=== PATIENT | male | born 1955 | race Caucasian/White ===

== ENCOUNTER → 2017-07-18 | Outpatient (CLI) | payer OTHER ==
--- NOTE | 2017-07-18 13:00 | KCIC ---
KNEE LEFT 3V Indication: .Left knee pain after an injury 9 years ago. Comparison: No comparison is available. FINDINGS: No acute fracture. Tricompartmental degenerative changes with osteophytes. Joint space loss greatest at the medial joint compartment. Mild chondrocalcinosis. No bone destruction. No dislocation. Vascular calcifications are noted. There is a small suprapatellar joint effusion. Enthesophytes at the tibial tubercle IMPRESSION: Primary osteoarthritis. Small joint effusion. Electronically signed by: Juve Melvin MD (07/18/2017 12:57 PM) [facility]
--- NOTE | 2017-07-18 13:05 | KCIC ---
Three-view left shoulder HISTORY: Pain after an injury 9 years ago. COMPARISON: None FINDINGS: Mild degenerative changes at the acromioclavicular joint. Mild bone hypertrophy at the greater tuberosity. Calcifications overlie the rotator cuff, likely calcific tendinitis. No evidence of acute fracture or dislocation. IMPRESSION: Chronic findings. No acute fracture or dislocation. Electronically signed by: Juve Melvin MD (07/18/2017 1:02 PM) [facility]
== END | disposition home or self-care (01) ==
LOC: KCIC 09:08
PROVIDERS: ATTEND Family Medicine
DX: M17.12 Unilateral primary osteoarthritis, left knee (principal); M25.512 Pain in left shoulder; M25.462 Effusion, left knee
CPT/HCPCS: 73030; 73562

== ENCOUNTER → 2019-08-12 | Outpatient (CLI) | payer MEDICARE ==
--- NOTE | 2019-08-13 15:09 | KCIC ---
2 views right hip without comparison for right hip and low back pain for one week, history of trauma years ago, 2 prior back surgeries. FINDINGS: There is no fracture, dislocation, or acute osseous abnormality of the right hip. There are degenerative changes, with narrowing of the articular cartilage, and some osteophyte formation about the acetabulum and femoral head. Extensive vascular calcifications are seen in the iliac arteries, including the internal iliac artery distributions. IMPRESSION: 1. No acute osseous abnormality. 2. Osteoarthritis of the right hip. 3. Advanced vasculopathy of the iliac arteries. Electronically signed by: Timmy Jacques MD (08/13/2019 3:06 PM) [facility]
--- NOTE | 2019-08-13 15:12 | KCIC ---
5 views of the lumbar spine without comparison for right hip and low back pain for a week, history of trauma years ago, 2 prior back surgeries. FINDINGS: There is straightening of the normal lumbar lordosis. No fracture or acute osseous abnormality of the lumbar spine is identified. There are flowing anterior marginal osteophytes at multiple levels, and there is facet arthrosis also at multiple levels, with findings most notable in the lower lumbar spine. There is an abdominal aortic aneurysm. There is severe calcification of the aortoiliac arteries, and it would be remarkable if this gentleman does not have clinical manifestations of vascular insufficiency to the pelvis and/or lower extremities. Consider further evaluation with CTA. IMPRESSION: 1. No fracture or acute osseous abnormality of the lumbar spine. 2. Multilevel degenerative changes as described. 3. Severe aortoiliac vasculopathy including abdominal aortic aneurysm. Consider further evaluation with CTA. Electronically signed by: Timmy Jacques MD (08/13/2019 3:09 PM) [facility]
== END | disposition home or self-care (01) ==
LOC: KCIC 14:06
PROVIDERS: ATTEND Family Medicine
DX: M16.11 Unilateral primary osteoarthritis, right hip (principal); M40.46 Postural lordosis, lumbar region; M25.78 Osteophyte, vertebrae; I71.4 Abdominal aortic aneurysm, without rupture; I70.0 Atherosclerosis of aorta; M47.816 Spondylosis without myelopathy or radiculopathy, lumbar region
CPT/HCPCS: 72110; 73502

== ENCOUNTER → 2019-08-21 | Outpatient (CLI) | payer MEDICARE ==
--- NOTE | 2019-08-21 15:06 | KCIC ---
MRI Lumbar Spine without contrast History: Lumbar radiculopathy, back pain for one week, previous surgery Technique: Multiplanar, multi sequential noncontrast MR imaging was performed of the lumbar spine. Comparison: None Findings: Lumbar vertebral body stature and AP alignment are maintained. Conus terminates at L1. There is moderate to severe narrowing greater posteriorly of the L5-S1 intervertebral disc space, may be in part on developmental basis. There is mild to moderate degenerative disc disease at L4-5 and minimally L3-4 and L2-3. There is no significant marrow edema. Not fully evaluated, there is abdominal aortic aneurysm about 4.1 cm greatest caliber. L1-L2: This level was not included on the axial images. Spinal canal and neural foramina are overall adequate. L2-L3: There is very minimal disc osteophyte complex and bulge. There is mild facet degenerative change and buckling of the ligamentum flavum. Spinal canal is overall adequate. There is minimal narrowing of the inferior right neural foramen greater distally by disc osteophyte complex, left neural foramen not significantly narrowed. L3-L4: There is very minimal disc osteophyte complex. There is minimal facet degenerative change and buckling of the ligamentum flavum. There is very mild narrowing of the far left lateral recess. There is mild narrowing of the left neural foramen, right neural foramen overall adequate. L4-L5: There is mild to moderate buckling of the ligamentum flavum and mild facet degenerative change. There is minimal disc osteophyte complex and bulge. There is [id number] narrowing of the far lateral recesses greater on the left, mild narrowing of the central canal. There is mild bilateral neural foramina compromise. L5-S1: There is left laminectomy defect. There is mild bilateral facet hypertrophic change. There is very minimal disc osteophyte complex, near the descending S1 nerve roots bilaterally. There is signal change in the left lateral recess probably in part due to fibrotic change. This extends about the descending left S1 nerve root level recess. There is very mild narrowing of the far lateral recesses. There is mild neural foramina compromise bilaterally, disc osteophyte complex near the proximal extraforaminal right L5 nerve root without significant displacement. Impression: 1. There is [id number] narrowing of the lateral recesses greater on the left at L4-5. Disc osteophyte complex at L5-S1 is near the descending S1 nerve roots bilaterally, very mild narrowing of the far lateral recesses. There is some signal change in the left lateral recess at the L5-S1 level about the descending left S1 nerve root which may be component of fibrotic change given left laminectomy at this level. There is multilevel mild neural foramina compromise as stated. 2. There is degenerative disc disease of the lumbar spine greatest at L5-S1. 3. Not fully evaluated, there is abdominal aortic aneurysm up to about 4.1 cm in caliber. Electronically signed by: Dio Joshi MD (08/21/2019 3:03 PM) [facility]
== END | disposition home or self-care (01) ==
LOC: KCIC MRI 13:21
PROVIDERS: ATTEND Family Medicine
DX: M51.36 Other intervertebral disc degeneration, lumbar region (principal); M25.78 Osteophyte, vertebrae
CPT/HCPCS: 72148

== ENCOUNTER → 2021-08-03 | Outpatient (CLI) | payer MEDICARE ==
[~2021-08-03] MED LIST: IOHEXOL 350 MG/ML 100 ML VIAL. IV ONE
[2021-08-03 11:27] LABS: CREATININE 0.6 mg/dL (0.7-1.3)
--- NOTE | 2021-08-03 16:33 | RAD ---
CTA abdomen pelvis and bilateral lower extremity runoff dated 08/03/2021. No comparison available. Clinical data indication: Right leg pain and decreased pedal pulses. TECHNIQUE: Contiguous axial imaging of the abdomen pelvis and bilateral lower extremity performed following the bolus administration of 95 cc Omnipaque 350. Study was performed as dedicated CTA with thin cut coron al and sagittal reconstructions and 3-D rotational reconstruction. One or more of the following individualized dose reduction techniques were utilized for this examinat ion: 1. Automated exposure control 2. Adjustment of the mA and/or kV according to patient size 3. Use of iterative reconstruction technique. FINDINGS: Contrast bolus is adequate. There is extensive calcific and soft plaque throughout. Aneurysmal dilati on of the infrarenal abdominal aorta measuring up to 4.6 cm transverse. No evidence of leak. Calcific plaque at the origin of the SMA resulting in mild to moderate grade narrowing, estimated at about 50% stenosis. There is also high-grade stenosis of the celiac artery origin due to calcific and soft plaque estimated at about 80-90% narrowing. Mild narrowing of the left renal artery origin and moderate narrowing of the right renal artery origin. Mild to moderate narrowing of the ANDREI origin. Dense calcific plaque at the distal abdominal aorta resulting in moderate to high-grade stenosis. The re is also moderate to high-grade stenosis of the bilateral common iliac arteries, right greater than left, which are difficult to accurately evaluate due to dense calcific plaquing. There is multifocal calcific plaquing of the external iliac arteries resulting in mild to moderate mu ltilevel narrowing. Moderate to high-grade narrowing of the bilateral internal iliac artery origins. Mild narrowing of the right common femoral artery, estimated at about 30-40% stenosis. The right SFA and profundus femoris are patent proximally. Mild calcific plaque at the mid to distal SFA resulting in mild narrowing. Focal calcific plaque at the right popliteal artery resulting in mild to moderate multifocal narrowing, no greater than 50% stenosis. Multifocal moderate narrowing of the proximal ant erior tibial artery, estimated at 60-70% stenosis. Tibioperoneal trunk is patent. The posterior tibia l artery and mid to distal anterior tibial artery are patent. Dorsalis pedis and posterior tibial art doreen at the ankle are patent. There is calcific plaque at the distal peroneal artery resulting in mode rate to high-grade narrowing. Calcific plaque at the distal posterior tibial artery just above the an kle results in moderate grade stenosis. There is mild narrowing of the distal left common femoral artery and proximal superficial femoral art doreen. The profundus femoris is patent proximally. Mild calcific plaquing of the proximal left SFA resu lting in no significant stenosis. There is focal calcific plaque at the mid SFA resulting in moderate grade narrowing, estimated at about 50-60% stenosis. There is also calcific plaque of the left popli teal artery resulting in moderate grade narrowing proximally, estimated at about 40-50% stenosis. Foc al calcific plaque at the proximal left anterior tibial artery resulting in 50-60% stenosis. The mid to distal GLORIA is patent. The posterior tibial artery and peroneal artery are patent on the left. Liver, spleen, pancreas, adrenal glands, gallbladder and kidneys are unremarkable. No hydronephrosis. Unopacified GI tract normal in caliber and contour. No bowel wall thickening. No inflammatory strandi ng in the mesentery. Images of pelvis show nondistended urinary bladder. Prostate gland mildly enlarged. No free fluid or pelvic adenopathy. Limited images of lung bases show mild dependent opacity in the left lower lobe, likely atelectasis. Heart size within normal limits. No pleural or pericardial effusion. Bone window show no acute findings. Multilevel spondylosis. IMPRESSION: 1. Infrarenal abdominal aortic aneurysm measuring up to 4.6 cm transverse. No evidence of leak. 2. There is extensive calcific plaque at the distal abdominal aorta and aortic bifurcation resulting in moderate to high-grade stenosis. Exact degree of narrowing is difficult to estimate but likely maureen und 90% stenosis of the proximal right common iliac artery and 70-80% stenosis on the left. 3. Multifocal calcific plaque throughout the bilateral lower extremity arterial tree. There is estima rissa 40-50% stenosis of the bilateral popliteal artery with moderate grade narrowing of the proximal a nterior tibial arteries bilaterally. Please see above report for full details. 4. 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 There is also mild to moderate bilateral renal artery stenosis. Electronically signed by: Juve Yeager MD (08/03/2021 4:31 PM) [facility]
== END ==
LOC: CT 10:47
PROVIDERS: ATTEND Internal Medicine
DX: I71.4 Abdominal aortic aneurysm, without rupture (principal); I70.203 Unspecified atherosclerosis of native arteries of extremities, bilateral legs; I35.0 Nonrheumatic aortic (valve) stenosis; I77.4 Celiac artery compression syndrome; I70.1 Atherosclerosis of renal artery; N40.0 Benign prostatic hyperplasia without lower urinary tract symptoms; T50.B95A Adverse effect of other viral vaccines, initial encounter; M47.819 Spondylosis without myelopathy or radiculopathy, site unspecified; M54.6 Pain in thoracic spine
CPT/HCPCS: 36415; 75635; 82565; Q9967